=== PATIENT | female | born 1935 | race Caucasian/White ===

== ENCOUNTER 2020-04-16 11:45 | Outpatient (REF) | payer MEDICARE, OTHER, SELFPAY ==
[2020-04-16 15:02] LABS: Cholesterol 180 mg/dL; HDL Cholesterol 84 mg/dL; LDL Cholesterol Calculated 76 mg/dl; Triglycerides 101 mg/dL
== END 2020-04-16 11:46 | disposition home or self-care (01) ==
LOC: HO.HMGCLDS 11:45
PROVIDERS: PCP Internal Medicine; Visit Provider Internal Medicine
DX: R06.00 Dyspnea, unspecified (principal); R30.0 Dysuria
CPT/HCPCS: 36415; 80061; 87086; 87088; 87186

== ENCOUNTER → 2020-07-09 10:19 | Outpatient (REF) | payer MEDICARE, OTHER, SELFPAY ==
--- NOTE | 2020-07-09 10:37 | ECG_ITS ---
Test Reason : CP Blood Pressure : / mmHG Vent. Rate : 080 BPM Atrial Rate : 080 BPM P-R Int : 154 ms QRS Dur : 088 ms QT Int : 370 ms P-R-T Axes : 040 -07 033 degrees QTc Int : 426 ms Normal sinus rhythm Non-specific intra-ventricular conduction block Abnormal ECG When compared with ECG of 05-JUN-2019 23:02, No significant change was found Referred By: Jaren Arguelles Electronically Signed By:JONATHAN CASTLE
== END ==
LOC: HO.CARD 10:19
PROVIDERS: PCP Internal Medicine; Visit Provider Internal Medicine
DX: R07.9 Chest pain, unspecified (principal)
CPT/HCPCS: 93005

== ENCOUNTER → 2020-09-10 11:28 | Outpatient (BNVA) | payer MEDICARE, OTHER, SELFPAY | PROVIDERS: Visit Provider Internal Medicine | DX: J84.9 Interstitial pulmonary disease, unspecified (principal); J15.212 Pneumonia due to Methicillin resistant Staphylococcus aureus; R09.02 Hypoxemia | CPT/HCPCS: 99212 ==

== ENCOUNTER 2020-09-24 14:57 | Outpatient (REF) | payer MEDICARE, OTHER, SELFPAY ==
[2020-09-24 15:39] LABS: MANUAL DIFF FLAG NO
[2020-09-24 15:43] LABS: Basophils Percent Auto 0.2 % (0-2); Eosinophils Absolute Auto 0.1 X10*3/uL (0.0-0.4); Eosinophils Percent Auto 0.4 % (0-4); Hematocrit 31.5 % (37-47); Hemoglobin 9.5 g/dl (12.0-16.0); Imm Gran Abs Auto 0.18 X10*3/uL (0.00-0.03); Imm Gran Pct Auto 1.3 % (0.0-0.4); Lymphocytes Percent Auto 6.9 % (20-40); Mean Corpuscular HGB Conc 30.2 g/dl (31.0-35.0); Mean Corpuscular Hemoglobin 21.4 pg (27.0-33.0); Mean Corpuscular Volume 70.9 fL (80-98); Mean Platelet Volume 9.4 fL (9.4-12.3); Monocytes Absolute Auto 0.7 X10*3/uL (0.1-1.2); Monocytes Percent Auto 4.8 % (2-11); Neutrophils Absolute Auto 12.2 X10*3/uL (2.0-8.3); Neutrophils Percent Auto 86.4 % (45-73); Platelet Count 448 X10*3/uL (160-400); Red Blood Count 4.44 X10*6/uL (4.20-5.50); Red Cell Distribution Width 22.2 % (11.0-16.0); White Blood Count 14.1 X10*3/uL (4.8-10.8)
[2020-09-24 16:17] LABS: Anion Gap 14 (12-20); Blood Urea Nitrogen 20 mg/dL (9-16); Calcium 8.9 mg/dL (8.4-10.2); Carbon Dioxide 29 mmol/L (22-29); Chloride 96 mmol/L (96-108); Estimated Glomerular Filt Rate > 60; Glucose Random 173 mg/dL (60-115); Potassium 5.4 mmol/L (3.3-5.1); Sodium 134 mmol/L (135-145)
== END 2020-09-24 14:58 | disposition home or self-care (01) ==
LOC: HO.LAB 14:57
PROVIDERS: PCP Internal Medicine; Visit Provider Internal Medicine
DX: Z00.00 Encounter for general adult medical examination without abnormal findings (principal); R51.9 Headache, unspecified
CPT/HCPCS: 36415; 80048; 85025

== ENCOUNTER 2020-10-01 10:19 | Outpatient (REF) | payer MEDICARE, OTHER, SELFPAY ==
--- NOTE | ~2020-10-01 | XR_ITS ---
EXAMINATION: XR CHEST CLINICAL INFORMATION: Pneumonia. COMPARISON: CT chest 07/21/2019 TECHNIQUE: 2 views of the chest were obtained. FINDINGS: There is persistent increase interstitial markings in both lungs. No consolidation seen. The heart size and pulmonary vascularity is normal. No lytic or sclerotic process seen. XR/XR chest 2V IMPRESSION: Chronic interstitial lung changes unchanged to CT chest 07/21/2019. No acute consolidation or pleural effusion seen.
== END 2020-10-01 10:20 | disposition home or self-care (01) ==
LOC: HO.XRAY 10:19
PROVIDERS: PCP Internal Medicine; Visit Provider Internal Medicine
DX: J18.9 Pneumonia, unspecified organism (principal); R09.02 Hypoxemia; Z79.899 Other long term (current) drug therapy
CPT/HCPCS: 71046; 99212

== ENCOUNTER → 2021-01-08 10:40 | Outpatient (BNVA) | payer MEDICARE, OTHER, SELFPAY | PROVIDERS: PCP Internal Medicine; Visit Provider Internal Medicine | DX: J84.9 Interstitial pulmonary disease, unspecified (principal); R09.02 Hypoxemia | CPT/HCPCS: 99212 ==

== ENCOUNTER 2021-05-20 16:07 | Inpatient (IN) | payer MEDICARE, OTHER, SELFPAY ==
--- NOTE | ~2021-05-20 | XR_ITS ---
EXAMINATION: XR CHEST CLINICAL INFORMATION: Shortness of breath COMPARISON: 10/01/2020 TECHNIQUE: Frontal view of the chest was obtained. FINDINGS: The lungs are well expanded. Diffuse prominent markings throughout both lungs, as seen on previous imaging and likely chronic in nature. There is no new consolidation. No pleural effusion or pneumothorax. The cardiomediastinal silhouette is unchanged, with a calcified aorta. Aortic valvular hardware. Degenerative changes in the shoulders. XR/XR chest 1V IMPRESSION: Chronic changes in the lungs with no acute pulmonary finding.
[2021-05-20 17:09] VITALS: BP 139/85; PULSE 84; RESP 20; TEMP 36.1; O2SAT 95; BMI 29.0
--- NOTE | 2021-05-20 20:48 | ED_ITS ---
HPI - SOB/Dyspnea General Chief Complaint: Dyspnea Stated Complaint: diff. breathing Time Seen by Provider: 05/20/21 20:48 Source: patient History of Present Illness HPI Narrative: Patient with history of congestive heart failure status post TAVR, hypertension, COPD, interstitial lung disease on prednisone 5 mg daily never smoked, on 2 L of oxygen at rest and 4 L on exertion comes here for increased shortness of breath saturating 95% on 2 L, at home since yesterday patient dropped her pulse ox to 70s while ambulating on oxygen 4 L patient was seen by PCP on 05/06 started on Bactrim for 5 days for UTI mostly patient has dry cough no fever chills no chest pain no palpitation Related Data Home Medications Medication Instructions Recorded Confirmed amlodipine 5 mg tablet 5 mg PO DAILY 05/18/20 05/20/21 ipratropium bromide 42 mcg (0.06 INTRANASAL 05/18/20 05/06/21 %) nasal spray pentoxifylline 400 mg 400 mg PO BID 05/18/20 05/20/21 tablet,extended release gabapentin 300 mg capsule 300 mg PO BEDTIME cap 10/01/20 05/20/21 omeprazole 20 mg capsule,delayed 20 mg PO DAILY 10/01/20 05/20/21 release prednisone 5 mg tablet 5 mg PO DAILY tab 10/01/20 05/20/21 nystatin 100,000 unit/gram topical TOPICAL 01/08/21 05/06/21 powder ferrous sulfate 325 mg (65 mg 325 mg PO DAILY 02/01/21 05/20/21 iron) tablet Previous Rx's Medication Instructions Recorded albuterol sulfate 90 mcg/actuation 2 puff INHALATION Q4-6H PRN #8.5 g 10/22/20 aerosol inhaler (ProAir HFA) lorazepam 0.5 mg tablet 0.5 mg PO BID #60 tab 01/02/21 simvastatin 40 mg tablet 40 mg PO BEDTIME #90 tab 04/16/21 furosemide 40 mg tablet (Lasix) 40 mg PO DAILY #90 tab 05/13/21 Allergies Allergy/AdvReac Type Severity Reaction Status Date / Time oxycodone [From PERCODAN] Allergy Unknown VOMITING Verified 05/20/21 17:16 Percodan Allergy Unknown vomiting Verified 05/20/21 17:16 Review of Systems Review of Systems: Yes all other systems are reviewed and are negative [facility] Past Medical History Medical History (Updated 05/20/21 @ 23:35 by Samir Kramer MD) CHF (congestive heart failure) Diarrhea Hyperlipidemia Hypertension Hypoxemia Immunization due Interstitial lung disease MRSA pneumonia Obesity Surgical History (Updated 05/20/21 @ 23:30 by Ta Goode MD) History of hysterectomy History of transcatheter aortic valve replacement (TAVR) Family History Family History Father No problems noted. Mother No problems noted. Other Substance use disorder Social History Social History Housing: Assisted Living Facility Alcohol intake: never Patient Tobacco Use Status: Never used Tobacco e-Cigarette/Vaping Use: Never Used Second Hand Smoke Exposure: No Advance Directives: No service: No Current occupational status: retired Cognitive needs: No Hearing needs: No Vision needs: No Physical Exam Vital Signs: Vital Signs: Last Vital Signs Temp 97 F 05/20/21 17:09 Pulse 101 H 05/20/21 23:44 Resp 16 05/20/21 23:44 BP 105/63 05/20/21 23:44 Pulse Ox 90 L 05/20/21 23:44 Oxygen Flow Rate 2 05/20/21 17:09 Body Mass Index 29.0 Appearance: Alert. Oriented X3. No acute distress. Eyes: No pallor/ icterus ENT: Pharynx normal. Oral Mucosa moist Neck: Normal inspection. Neck supple. CVS: Normal heart rate and rhythm. Pulses normal. Respiratory: Mild respiratory distress find crackles at the bases prolonged expiration with rhonchi Abdomen: Soft and nontender. Bowel sounds are present, no mass palpable, no CVA tenderness Skin: Skin warm and dry. Normal skin color. Normal skin turgor. Extremities: Trace lower extremity edema. No calf tenderness Neuro: Oriented X 3. MDM - SOB/Dyspnea MDM Narrative Medical decision making narrative: Patient with chronic lung disease with worsening of shortness of breath with hypoxia at home on exertion with elevated BNP likely component of CHF making her shortness of breath worse will start IV diuretics admit for further evaluation Medical Records Attestation: I reviewed the patient's medical records. Lab Data Attestation: I reviewed the patient's lab results. Result diagrams: 05/20/21 21:25 05/20/21 21:25 Labs: Lab Results 05/20/21 05/20/21 05/20/21 Range/Units 21:25 21:25 21:25 WBC 7.3 (4.8-10.8) X10*3/uL RBC 4.18 L (4.20-5.50) X10*6/uL Hgb 11.4 L (12.0-16.0) g/dl Hct 35.2 L (37.0-47.0) % MCV 84.2 (80.0-98.0) fL MCH 27.3 (27.0-33.0) pg MCHC 32.4 (31.0-35.0) g/dl RDW 15.2 (11.0-16.0) % Plt Count 298 (160-400) X10*3/uL MPV 8.9 L (9.4-12.3) fL Immature Gran % (Auto) 0.5 H (0.0-0.4) % Neut % (Auto) 68.8 (45-73) % Lymph % (Auto) 18.1 L (20-40) % [place] % (Auto) 9.6 (2-11) % Eos % (Auto) 2.3 (0-4) % Baso % (Auto) 0.7 (0-2) % Lymph # (Auto) 1.3 (1.2-4.9) X10*3/uL [place] # (Auto) 0.7 (0.1-1.2) X10*3/uL Eos # (Auto) 0.2 (0.0-0.4) X10*3/uL Baso # (Auto) 0.1 (0.0-0.2) X10*3/uL Abs Immat Gran (auto) 0.04 H (0.00-0.03) X10*3/uL Absolute Neuts (auto) 5.0 (2.0-8.3) x10*3/uL Absolute Nucleated RBC 0.000 (0.0-0.012) X10*3/uL Nucleated RBC % (auto) 0.0 (0.0-0.2) /100WBC Sodium 136 (135-145) mmol/L Potassium 4.2 D (3.3-5.1) mmol/L Chloride 100 (96-108) mmol/L Carbon Dioxide 24 (22-29) mmol/L Anion Gap 16 (12-20) BUN 23 H (9-16) mg/dL Creatinine 1.03 (0.5-1.4) mg/dL Estim Creat Clear Calc 37.8 Estimated GFR 51 Fasting Glucose 138 H (60-99) mg/dL Calcium 8.8 (8.4-10.2) mg/dL Total Bilirubin 0.5 (0.0-1.0) mg/dL AST 42 H (5-31) U/L ALT 44 H (0-31) U/L Alkaline Phosphatase 87 (39-117) U/L B-Natriuretic Peptide (<100) pg/mL Total Protein 7.6 (6.5-8.0) g/dL Albumin 4.1 (3.5-5.0) g/dL COVID-19 (JOSE) Negative (Negative) COVID-19 Clin Com See Note 05/20/21 Range/Units 21:25 WBC (4.8-10.8) X10*3/uL RBC (4.20-5.50) X10*6/uL Hgb (12.0-16.0) g/dl Hct (37.0-47.0) % MCV (80.0-98.0) fL MCH (27.0-33.0) pg MCHC (31.0-35.0) g/dl RDW (11.0-16.0) % Plt Count (160-400) X10*3/uL MPV (9.4-12.3) fL Immature Gran % (Auto) (0.0-0.4) % Neut % (Auto) (45-73) % Lymph % (Auto) (20-40) % [place] % (Auto) (2-11) % Eos % (Auto) (0-4) % Baso % (Auto) (0-2) % Lymph # (Auto) (1.2-4.9) X10*3/uL [place] # (Auto) (0.1-1.2) X10*3/uL Eos # (Auto) (0.0-0.4) X10*3/uL Baso # (Auto) (0.0-0.2) X10*3/uL Abs Immat Gran (auto) (0.00-0.03) X10*3/uL Absolute Neuts (auto) (2.0-8.3) x10*3/uL Absolute Nucleated RBC (0.0-0.012) X10*3/uL Nucleated RBC % (auto) (0.0-0.2) /100WBC Sodium (135-145) mmol/L Potassium (3.3-5.1) mmol/L Chloride (96-108) mmol/L Carbon Dioxide (22-29) mmol/L Anion Gap (12-20) BUN (9-16) mg/dL Creatinine (0.5-1.4) mg/dL Estim Creat Clear Calc Estimated GFR Fasting Glucose (60-99) mg/dL Calcium (8.4-10.2) mg/dL Total Bilirubin (0.0-1.0) mg/dL AST (5-31) U/L ALT (0-31) U/L Alkaline Phosphatase (39-117) U/L B-Natriuretic Peptide 1032 H (<100) pg/mL Total Protein (6.5-8.0) g/dL Albumin (3.5-5.0) g/dL COVID-19 (JOSE) (Negative) COVID-19 Clin Com ECG Data Attestation: I personally reviewed and interpreted this ECG as follows: Interpretation: Normal sinus rhythm heart rate 81 beats per minute LVH no acute ST T wave changes no acute ischemia Discharge Plan Discharge Clinical Impression: Hypoxemia, Interstitial lung disease CHF (congestive heart failure) Qualifiers: Heart failure type: combined systolic and diastolic Heart failure chronicity: acute on chronic Qualified Code(s): I50.43 - Acute on chronic combined systolic (congestive) and diastolic (congestive) heart failure Patient Disposition: Admitted As Inpatient
[2021-05-20] MEDS: Albuterol/Iprat 2.5/0.5MG 3 ML AMPUL.NEB INHALE (21:09)
[2021-05-20 21:10] VITALS: PULSE 86; O2SAT 92
[2021-05-20 21:33] LABS: MANUAL DIFF FLAG NO
[2021-05-20 21:36] LABS: Basophils Absolute Auto 0.1 X10*3/uL (0.0-0.2); Basophils Percent Auto 0.7 % (0-2); Eosinophils Absolute Auto 0.2 X10*3/uL (0.0-0.4); Eosinophils Percent Auto 2.3 % (0-4); Hematocrit 35.2 % (37.0-47.0); Hemoglobin 11.4 g/dl (12.0-16.0); Imm Gran Abs Auto 0.04 X10*3/uL (0.00-0.03); Imm Gran Pct Auto 0.5 % (0.0-0.4); Lymphocytes Absolute Auto 1.3 X10*3/uL (1.2-4.9); Lymphocytes Percent Auto 18.1 % (20-40); Mean Corpuscular HGB Conc 32.4 g/dl (31.0-35.0); Mean Corpuscular Hemoglobin 27.3 pg (27.0-33.0); Mean Corpuscular Volume 84.2 fL (80.0-98.0); Mean Platelet Volume 8.9 fL (9.4-12.3); Monocytes Absolute Auto 0.7 X10*3/uL (0.1-1.2); Monocytes Percent Auto 9.6 % (2-11); Neutrophils Percent Auto 68.8 % (45-73); Platelet Count 298 X10*3/uL (160-400); Red Blood Count 4.18 X10*6/uL (4.20-5.50); Red Cell Distribution Width 15.2 % (11.0-16.0); White Blood Count 7.3 X10*3/uL (4.8-10.8)
[2021-05-20 21:50] LABS: Alanine Aminotransferase 44 U/L (0-31); Albumin Level 4.1 g/dL (3.5-5.0); Alkaline Phosphatase 87 U/L (39-117); Anion Gap 16 (12-20); Aspartate Amino Transferase 42 U/L (5-31); Bilirubin Total 0.5 mg/dL (0.0-1.0); Blood Urea Nitrogen 23 mg/dL (9-16); Calcium 8.8 mg/dL (8.4-10.2); Carbon Dioxide 24 mmol/L (22-29); Chloride 100 mmol/L (96-108); Creatinine Clr Calc Pharmacy 37.8; Estimated Glomerular Filt Rate 51; Glucose Fasting 138 mg/dL (60-99); Potassium 4.2 mmol/L (3.3-5.1); Sodium 136 mmol/L (135-145); Total Protein 7.6 g/dL (6.5-8.0)
[2021-05-20 21:52] LABS: COVID-19 Test Negative (Negative); IDNOW Serial# 9DD0AD1C
[2021-05-20 21:55] LABS: B Type Natriuretic Peptide 1032 pg/mL (<100)
[2021-05-20] MEDS: methylPREDNISolone Sod Succ 125 MG/2 ML VIAL IVPUSH (22:50)
--- NOTE | 2021-05-20 23:29 | PM.IMHP ---
History of Present Illness Date of Service: 05/20/21 Chief Complaint: SOB 85-year-old female with a past medical history of hypertension, hyperlipidemia, COPD, interstitial lung disease, chronic respiratory failure on 2-4 L of home oxygen, CHF, history of MRSA pneumonia, history of TAVR presented to the hospital with a chief complaint of shortness of breath. Reported that over the past few days she has been having shortness of breath and increased dyspnea on exertion; she uses 2 L of oxygen at rest and 4 L at ambulation; today noted toe hypoxic to 70% even on 4 L of home oxygen; denies any chest pain palpitations. Denies any fever chills. Denies any cough or sputum production; Denies any GI or symptoms. Review of all other systems is negative except mentioned above ER course: Patient noted to be hypoxic; on supplemental oxygen; not in respiratory distress; chest x-ray showed no evidence of pneumonia; concern for COPD exacerbation-given Solu-Medrol; also noted to elevated proBNP-given Lasix. Admitted for further management. [facility] Medical History (Updated 05/20/21 @ 23:35 by Samir Kramer MD) CHF (congestive heart failure) Diarrhea Hyperlipidemia Hypertension Hypoxemia Immunization due Interstitial lung disease MRSA pneumonia Obesity Family History Father No problems noted. Mother No problems noted. Other Substance use disorder Pertinent family history: as above Surgical History (Updated 05/20/21 @ 23:30 by Ta Goode MD) History of hysterectomy History of transcatheter aortic valve replacement (TAVR) Social History Housing: Assisted Living Facility Alcohol intake: never Patient Tobacco Use Status: Never used Tobacco e-Cigarette/Vaping Use: Never Used Second Hand Smoke Exposure: No Use of substances other than those prescribed or required for medical reasons: No Advance Directives: No service: No Current occupational status: retired Cognitive needs: No Hearing needs: No Vision needs: No Meds Allergies Allergy/AdvReac Type Severity Reaction Status Date / Time oxycodone [From PERCODAN] Allergy Unknown VOMITING Verified 05/20/21 17:16 Percodan Allergy Unknown vomiting Verified 05/20/21 17:16 Active Medications: Current Medications Acetaminophen (Acetaminophen 325 Mg Tablet) 650 mg PO Q6H PRN PRN Reason: Pain, Mild (Pain Scale 1-3) Albuterol/Ipratropium (Albuterol/Iprat 2.5/0.5mg 3 Ml Ampul.Neb) 3 ml INHALE RQ4H WHILE AWAKE BARBARA Azithromycin (Azithromycin 500 Mg Tablet) 500 mg PO Q24H BARBARA Furosemide (Furosemide 20 Mg/2 Ml Vial) 20 mg IVPUSH DAILY BARBARA; Protocol Heparin Sodium (Porcine) (Heparin Sodium,Porcine 5,000 Unit/Ml Vial) 5,000 unit SUBCUT Q8H BARBARA Melatonin (Melatonin 3 Mg Tablet) 6 mg PO BEDTIME PRN PRN Reason: Insomnia Methylprednisolone Sodium Succinate (Methylprednisolone Sod Succ 40 Mg/Ml Vial) 40 mg IVPUSH Q6H BARBARA Senna (Sennosides 8.6 Mg Tablet) 17.2 mg PO BEDTIME PRN PRN Reason: Constipation Sodium Chloride (0.9 % Sodium Chloride Flush 3 Ml Syringe) 3 ml IVFLUSH QSHIFT [facility] Home Medications Medication Instructions Recorded Confirmed Last Taken Type amlodipine 5 mg tablet 5 mg PO DAILY 05/18/20 05/20/21 Unknown History ipratropium bromide 42 mcg (0.06 INTRANASAL 05/18/20 05/06/21 Unknown History %) nasal spray pentoxifylline 400 mg 400 mg PO BID 05/18/20 05/20/21 Unknown History tablet,extended release gabapentin 300 mg capsule 300 mg PO BEDTIME cap 10/01/20 05/20/21 Unknown History omeprazole 20 mg capsule,delayed 20 mg PO DAILY 10/01/20 05/20/21 Unknown History release prednisone 5 mg tablet 5 mg PO DAILY tab 10/01/20 05/20/21 Unknown History nystatin 100,000 unit/gram topical TOPICAL 01/08/21 05/06/21 Unknown History powder ferrous sulfate 325 mg (65 mg 325 mg PO DAILY 02/01/21 05/20/21 Unknown History iron) tablet Physical Exam Vital Signs and Narrative: Vital Signs: Last Vital Signs Temp 97 F 05/20/21 17:09 Pulse 86 05/20/21 21:10 Resp 20 05/20/21 17:09 BP 139/85 05/20/21 17:09 Pulse Ox 95 05/20/21 17:09 Oxygen Flow Rate 2 05/20/21 17:09 Body Mass Index 29.0 Gen: Appears be in no acute distress HEENT: NCAT, Moist mucosa. Pulmonary: coarse breath sounds, CVS: Normal S1-S2 Abdomen: BS+, Soft, Nontender Extremities: Warm well perfused Neuro: Alert and awake. Results Labs CBC and Chem 7: 05/20/21 21:25 05/20/21 21:25 Labs: Laboratory Results - last 24 hr 05/20/21 05/20/21 05/20/21 21:25 21:25 21:25 MCV 84.2 MCH 27.3 MCHC 32.4 RDW 15.2 Plt Count 298 MPV 8.9 L Immature Gran % (Auto) 0.5 H Neut % (Auto) 68.8 Lymph % (Auto) 18.1 L [place] % (Auto) 9.6 Eos % (Auto) 2.3 Baso % (Auto) 0.7 Lymph # (Auto) 1.3 [place] # (Auto) 0.7 Eos # (Auto) 0.2 Baso # (Auto) 0.1 Abs Immat Gran (auto) 0.04 H Absolute Neuts (auto) 5.0 Absolute Nucleated RBC 0.000 Nucleated RBC % (auto) 0.0 Anion Gap 16 Estim Creat Clear Calc 37.8 Estimated GFR 51 Fasting Glucose 138 H Calcium 8.8 Total Bilirubin 0.5 AST 42 H ALT 44 H Alkaline Phosphatase 87 B-Natriuretic Peptide Total Protein 7.6 Albumin 4.1 COVID-19 (JOSE) Negative COVID-19 Clin Com See Note 05/20/21 21:25 MCV MCH MCHC RDW Plt Count MPV Immature Gran % (Auto) Neut % (Auto) Lymph % (Auto) [place] % (Auto) Eos % (Auto) Baso % (Auto) Lymph # (Auto) [place] # (Auto) Eos # (Auto) Baso # (Auto) Abs Immat Gran (auto) Absolute Neuts (auto) Absolute Nucleated RBC Nucleated RBC % (auto) Anion Gap Estim Creat Clear Calc Estimated GFR Fasting Glucose Calcium Total Bilirubin AST ALT Alkaline Phosphatase B-Natriuretic Peptide 1032 H Total Protein Albumin COVID-19 (JOSE) COVID-19 Clin Com Imaging Radiologist's Impressions: Impressions Chest X-Ray 05/20/21 22:56 IMPRESSION: Chronic changes in the lungs with no acute pulmonary finding. Assessment and Plan (1) CHF (congestive heart failure): Status: Acute (2) Interstitial lung disease: Status: Acute (3) Hypoxemia: Status: Acute 85-year-old female with a past medical history of hypertension, hyperlipidemia, COPD, interstitial lung disease, chronic respiratory failure on 2-4 L of home oxygen, CHF, history of MRSA pneumonia, history of TAVR presented to the hospital with a chief complaint of shortness of breath. Acute hypoxic respiratory failure: In the setting of COPD/CHF. On supplemental oxygen. Will continue to monitor. Acute I&D/COPD exacerbation: Continue Solu-Medrol 40 mg IV b.i.d.. Hold home prednisone 2.5 mg. Nebulizations standing and p.r.n.. Pulmonology consult Acute CHF exacerbation: Continue Lasix 20 mg IV daily. Daily weights and I's and O's. Cardiology consult. Telemetry. Cycle cardiac enzymes. Hypertension/hyperlipidemia: Continue home medications DVT prophylaxis: Subcu heparin Code status: Full code Quality Stroke Does the patient have a stroke diagnosis?: No VTE Prior VTE?: No VTE Risk Level:: Medical - moderate - high VTE Device Contraindication: Treatment Not Indicated VTE Drug Contraindication: N/A - Med Ordered
--- NOTE | 2021-05-20 23:34 | ECG_ITS ---
Test Reason : DYSPNEA Blood Pressure : / mmHG Vent. Rate : 081 BPM Atrial Rate : 081 BPM P-R Int : 168 ms QRS Dur : 098 ms QT Int : 392 ms P-R-T Axes : 040 -17 054 degrees QTc Int : 455 ms Normal sinus rhythm Possible Left atrial enlargement Intra-ventricular conduction delay Left axis deviation Poor R wave progression Abnormal ECG When compared with ECG of 09-JUL-2020 10:46, Nonspecific T wave abnormality now evident in Lateral leads Referred By: Samir Kramer Electronically Signed By:ABIGAIL JACKSON MD
[2021-05-20 23:44] VITALS: BP 105/63; PULSE 101; RESP 16; O2SAT 90
[2021-05-21] VITALS (10 sets, daily range): BP systolic 102–141; BP diastolic 54–93; PULSE 84–101; RESP 16–24; TEMP 36.7; O2SAT 90–96
[2021-05-21] MEDS: Heparin Sodium,Porcine 5,000 UNIT/ML VIAL 5000 UNIT SUBCUT ×4 (00:09→23:17)
[2021-05-21] MEDS: Furosemide 20 MG/2 ML VIAL IVPUSH ×2 (00:11→09:10)
[2021-05-21] MEDS: Azithromycin 500 MG TABLET PO ×2 (00:12→19:47)
--- NOTE | 2021-05-21 01:29 | PC.NURSE ---
Put pt on a purewick due to pt being give lasix and having difficulty catching breath after getting up to use the bathroom. Pt was agreeable to being put on purewick having used it before at a snf.
[2021-05-21 06:44] LABS: Basophils Percent Auto 0.2 % (0-2); Hematocrit 35.7 % (37.0-47.0); Hemoglobin 11.4 g/dl (12.0-16.0); Imm Gran Abs Auto 0.02 X10*3/uL (0.00-0.03); Imm Gran Pct Auto 0.4 % (0.0-0.4); Lymphocytes Absolute Auto 0.4 X10*3/uL (1.2-4.9); Lymphocytes Percent Auto 7.2 % (20-40); MANUAL DIFF FLAG SCAN; Mean Corpuscular HGB Conc 31.9 g/dl (31.0-35.0); Mean Corpuscular Hemoglobin 26.6 pg (27.0-33.0); Mean Corpuscular Volume 83.2 fL (80.0-98.0); Mean Platelet Volume 9.2 fL (9.4-12.3); Monocytes Absolute Auto 0.1 X10*3/uL (0.1-1.2); Monocytes Percent Auto 1.1 % (2-11); Neutrophils Absolute Auto 4.9 x10*3/uL (2.0-8.3); Neutrophils Percent Auto 91.1 % (45-73); Platelet Count 312 X10*3/uL (160-400); Red Blood Count 4.29 X10*6/uL (4.20-5.50); Red Cell Distribution Width 15.1 % (11.0-16.0); SCAN SMEAR FLAG 1; White Blood Count 5.4 X10*3/uL (4.8-10.8)
[2021-05-21 07:17] LABS: SLIDE REVIEW VERIFIED
[2021-05-21 07:19] LABS: Anion Gap 13 (12-20); Blood Urea Nitrogen 20 mg/dL (9-16); Calcium 8.7 mg/dL (8.4-10.2); Carbon Dioxide 29 mmol/L (22-29); Chloride 99 mmol/L (96-108); Creatinine Clr Calc Pharmacy 42.3; Estimated Glomerular Filt Rate 58; Glucose Random 170 mg/dL (60-115); Potassium 3.9 mmol/L (3.3-5.1); Sodium 137 mmol/L (135-145)
[2021-05-21] MEDS: Omeprazole 20 MG CAPSULE.DR PO (07:51)
[2021-05-21] MEDS: methylPREDNISolone Sod Succ 40 MG/ML VIAL IVPUSH ×3 (07:51→19:47)
[2021-05-21] MEDS: Albuterol/Iprat 2.5/0.5MG 3 ML AMPUL.NEB INHALE ×4 (08:28→20:10)
--- NOTE | 2021-05-21 08:53 | P.CONPL_ITS ---
History of Present Illness History of Present Illness Consult date: 05/21/21 Chief complaint: Hypoxia Narrative: This is an inpatient Pulmonary consultation. 85-year-old female with a past medical history of hypertension, hyperlipidemia, COPD, interstitial lung disease, chronic respiratory failure on 2-4 L of home oxygen, CHF, history of MRSA pneumonia, history of TAVR presented to the hospital with a chief complaint of shortness of breath. Reported that over the past few days she has been having shortness of breath and increased dyspnea on exertion; she uses 2 L of oxygen at rest and 4 L at ambulation; today noted toe hypoxic to 70% even on 4 L of home oxygen; denies any chest pain palpitations. Patient did have a . There is a stat CT scan of the chest was chest x-ray chest x-ray personally by me demonstrating increased cardiac size in addition to significant reticulonodular opacities consistent with significant interstitial lung disease. Review of Systems Constitutional: Constitutional: Denies night sweats ENT: Denies change in voice, Denies lip swelling, Denies mouth pain, Reports nasal congestion, Reports nasal discharge and Denies tongue swelling Cardiovascular: Cardiovascular: Reports chest pain and Reports dyspnea Respiratory: Respiratory: Reports cough and Reports dyspnea Gastrointestinal: Gastrointestinal: Denies abdominal pain Musculoskeletal: Musculoskeletal: Denies no additional musculoskeletal complai nts Neurologic: Denies Neuro-related abnormal movements Allergic/Immunologic: Allergic/Immunologic: Denies lip swelling and Denies tongue swelling PMFSH Past Medical History Medical History (Updated 05/21/21 @ 08:56 by Florentino Rose MD) Acute and chronic respiratory failure with hypoxia CHF (congestive heart failure) Diarrhea Hyperlipidemia Hypertension Hypoxemia Immunization due Interstitial lung disease MRSA pneumonia Obesity Family History Family History Father No problems noted. Mother No problems noted. Other Substance use disorder Surgical History Surgical History (Updated 05/20/21 @ 23:30 by Ta Goode MD) History of hysterectomy History of transcatheter aortic valve replacement (TAVR) Social History Social History Housing: Assisted Living Facility Alcohol intake: never Patient Tobacco Use Status: Never used Tobacco e-Cigarette/Vaping Use: Never Used Second Hand Smoke Exposure: No Use of substances other than those prescribed or required for medical reasons: No Advance Directives: No service: No Current occupational status: retired Cognitive needs: No Hearing needs: No Vision needs: No Meds Allergies Allergy/AdvReac Type Severity Reaction Status Date / Time oxycodone [From PERCODAN] Allergy Unknown VOMITING Verified 05/20/21 17:16 Percodan Allergy Unknown vomiting Verified 05/20/21 17:16 Active Medications: Current Medications Acetaminophen (Acetaminophen 325 Mg Tablet) 650 mg PO Q6H PRN PRN Reason: Pain, Mild (Pain Scale 1-3) Albuterol Sulfate (Albuterol Sulfate 90 Mcg 8 Gm Inhaler) 2 puff INHALE Q4H PRN PRN Reason: shortness of breath or wheezing Albuterol/Ipratropium (Albuterol/Iprat 2.5/0.5mg 3 Ml Ampul.Neb) 3 ml INHALE RQ4H WHILE AWAKE [facility] Last Admin: 05/21/21 08:28 Dose: 3 ml Documented by: Amlodipine Besylate (Amlodipine Besylate 5 Mg Tablet) 5 mg PO DAILY [facility]; Protocol Atorvastatin Calcium (Atorvastatin Calcium 20 Mg Tablet) 20 mg PO BEDTIME [facility] Azithromycin (Azithromycin 500 Mg Tablet) 500 mg PO Q24H [facility] Furosemide (Furosemide 20 Mg/2 Ml Vial) 20 mg IVPUSH DAILY [facility]; Protocol Gabapentin (Gabapentin 300 Mg Capsule) 300 mg PO BEDTIME [facility] Heparin Sodium (Porcine) (Heparin Sodium,Porcine 5,000 Unit/Ml Vial) 5,000 unit SUBCUT Q8H [facility] Last Admin: 05/21/21 07:51 Dose: 5,000 unit Documented by: Lorazepam (Lorazepam 0.5 Mg Tablet) 0.5 mg PO BID [facility] Melatonin (Melatonin 3 Mg Tablet) 6 mg PO BEDTIME PRN PRN Reason: Insomnia Methylprednisolone Sodium Succinate (Methylprednisolone Sod Succ 40 Mg/Ml Vial) 40 mg IVPUSH Q6H [facility] Last Admin: 05/21/21 07:51 Dose: 40 mg Documented by: Omeprazole (Omeprazole 20 Mg Capsule.) 20 mg PO DAILY@0630 [facility] Last Admin: 05/21/21 07:51 Dose: 20 mg Documented by: Pentoxifylline (Pentoxifylline Er 400 Mg Tablet.Er) 400 mg PO BID [facility] Senna (Sennosides 8.6 Mg Tablet) 17.2 mg PO BEDTIME PRN PRN Reason: Constipation Sodium Chloride (0.9 % Sodium Chloride Flush 3 Ml Syringe) 3 ml IVFLUSH QSHIFT [facility] Last Admin: 05/21/21 08:20 Dose: Not Given Documented by: Home Medications Medication Instructions Recorded Confirmed Last Taken Type amlodipine 5 mg tablet 5 mg PO DAILY 05/18/20 05/20/21 Unknown History ipratropium bromide 42 mcg (0.06 INTRANASAL 05/18/20 05/06/21 Unknown History %) nasal spray pentoxifylline 400 mg 400 mg PO BID 05/18/20 05/20/21 Unknown History tablet,extended release gabapentin 300 mg capsule 300 mg PO BEDTIME cap 10/01/20 05/20/21 Unknown History omeprazole 20 mg capsule,delayed 20 mg PO DAILY 10/01/20 05/20/21 Unknown History release prednisone 5 mg tablet 5 mg PO DAILY tab 10/01/20 05/20/21 Unknown History nystatin 100,000 unit/gram topical TOPICAL 01/08/21 05/06/21 Unknown History powder ferrous sulfate 325 mg (65 mg 325 mg PO DAILY 02/01/21 05/20/21 Unknown History iron) tablet Physical Exam Vital Signs: Vital Signs: Last Vital Signs Temp 97 F 05/20/21 17:09 Pulse 88 05/21/21 08:29 Resp 19 05/21/21 07:47 BP 140/93 H 05/21/21 07:47 Pulse Ox 93 05/21/21 07:47 Oxygen Flow Rate 2 05/20/21 17:09 Body Mass Index 29.0 Const: General: alert Neck: Neck: Yes normal visual inspection, Yes full ROM and Yes no lymphadenopathy Chest: Chest palpation & inspection: normal inspection of the chest Resp: Auscultation: rales bilateral and diffuse and diminished lung sounds Cardio: Rate: regular rate Rhythm: regular rhythm Heart sounds: S1 normal heart sound present and S2 normal heart sound present GI: Palpation (GI): Soft to palpation and nontender Auscultation: normal bowel sounds Skin: General skin exam: rashes and/or lesions noted Results Laboratory Findings CBC and BMP: 05/21/21 06:30 05/21/21 06:30 Abnormal lab findings: Abnormal Labs 05/20/21 05/20/21 05/20/21 21:25 21:25 21:25 RBC 4.18 L Hgb 11.4 L Hct 35.2 L MCH MPV 8.9 L Immature Gran % (Auto) 0.5 H Neut % (Auto) Lymph % (Auto) 18.1 L [place] % (Auto) Lymph # (Auto) Abs Immat Gran (auto) 0.04 H BUN 23 H Random Glucose Fasting Glucose 138 H AST 42 H ALT 44 H B-Natriuretic Peptide 1032 H 05/21/21 05/21/21 06:30 06:30 RBC Hgb 11.4 L Hct 35.7 L MCH 26.6 L MPV 9.2 L Immature Gran % (Auto) Neut % (Auto) 91.1 H Lymph % (Auto) 7.2 L [place] % (Auto) 1.1 L Lymph # (Auto) 0.4 L Abs Immat Gran (auto) BUN 20 H Random Glucose 170 H Fasting Glucose AST ALT B-Natriuretic Peptide Assessment and Plan (1) Acute and chronic respiratory failure with hypoxia: Status: Acute (2) Interstitial lung disease: Status: Acute (3) CHF (congestive heart failure): Qualifiers: Heart failure chronicity: acute on chronic Heart failure type: combined systolic and diastolic Qualified Code(s): I50.43 - Acute on chronic combined systolic (congestive) and diastolic (congestive) heart failure Status: Acute The patient likely has worsening respiratory status due to a component of congestive heart failure superimposed on her advanced interstitial lung disease. Exacerbation of her interstitial lung disease is also possible with no evidence of any significant ground-glass opacities at this time. Her brain tumor peptide is also elevated she has a significant cardiac history. Continue Solu-Medrol 40 mg IV q.6 times 1-2 days then deescalate to prednisone 40 mg daily Continue diuresis as tolerated Titrate oxygen to maintain a pulse ox above 90% Complete a course antibiotics x7 days Consider echocardiogram and cardiac evaluation. Will continue to follow. Procedures Date of Service Date of Service: 05/21/21
[2021-05-21] MEDS: amLODIPine Besylate 5 MG TABLET PO (09:09)
[2021-05-21] MEDS: Pentoxifylline ER 400 MG TABLET.ER PO ×2 (09:09→21:32)
[2021-05-21] MEDS: LORazepam 0.5 MG TABLET PO ×2 (09:10→21:00)
[2021-05-21] MEDS: Acetaminophen 325 MG TABLET 650 MG PO ×2 (09:10→15:56)
--- NOTE | 2021-05-21 10:23 | PM.CNCAR ---
History of Present Illness History of Present Illness Date of Service: 05/21/21 Chief complaint: Hypoxia Narrative: This is a cardiology consultation regarding possibly congestive heart failure. Patient goes to [facility]. She has a history of transcatheter aortic valve replacement from 2017. At that time, cardiac catheterization with only nonobstructive disease and nothing significant hemodynamically. Otherwise, she has a history of COPD and interstitial lung disease but she denies any smoking history. She states she has chronic shortness of breath on ambulation but in the last few days, she has been short of breath even on just a few steps and this is significantly more than her usual. She also has some chest pain on the left side but is clearly reproducible and present in only certain circumstances like taking a deep breath, finger pressure extra. Does not sound anginal at all. No significant leg swelling. Is Review of Systems Review of Systems: Yes all other systems are reviewed and are negative Cardiovascular: Cardiovascular: Reports as per HPI, Reports no additional cardiovascular complaints, Denies acrocyanosis, Denies cool extremities, Denies painful fingertips, Reports chest pain, Denies chest pain at rest, Denies diaphoresis, Denies syncope, Denies irregular heart rhythm, Denies claudication, Denies leg edema, Denies lightheadedness, Denies palpitations and Reports dyspnea Respiratory: Respiratory: Reports dyspnea Neurologic: Denies syncope Endocrine: Endocrine: Denies palpitations [facility] Past Medical History Medical History (Updated 05/21/21 @ 10:30 by Oli Tejada MD) Acute and chronic respiratory failure with hypoxia CHF (congestive heart failure) Diarrhea Hyperlipidemia Hypertension Hypoxemia Immunization due Interstitial lung disease MRSA pneumonia Obesity Family History Family History Father No problems noted. Mother No problems noted. Other Substance use disorder Surgical History Surgical History (Updated 05/21/21 @ 10:35 by Oli Tejada MD) History of hysterectomy History of transcatheter aortic valve replacement (TAVR) Social History Social History Housing: Assisted Living Facility Alcohol intake: never Patient Tobacco Use Status: Never used Tobacco e-Cigarette/Vaping Use: Never Used Second Hand Smoke Exposure: No Use of substances other than those prescribed or required for medical reasons: No Advance Directives: No service: No Current occupational status: retired Cognitive needs: No Hearing needs: No Vision needs: No Meds Allergies Allergy/AdvReac Type Severity Reaction Status Date / Time oxycodone [From PERCODAN] Allergy Unknown VOMITING Verified 05/20/21 17:16 Percodan Allergy Unknown vomiting Verified 05/20/21 17:16 Active Medications: Current Medications Acetaminophen (Acetaminophen 325 Mg Tablet) 650 mg PO Q6H PRN PRN Reason: Pain, Mild (Pain Scale 1-3) Last Admin: 05/21/21 09:10 Dose: 650 mg Documented by: Albuterol Sulfate (Albuterol Sulfate 90 Mcg 8 Gm Inhaler) 2 puff INHALE Q4H PRN PRN Reason: shortness of breath or wheezing Albuterol/Ipratropium (Albuterol/Iprat 2.5/0.5mg 3 Ml Ampul.Neb) 3 ml INHALE RQ4H WHILE AWAKE [facility] Last Admin: 05/21/21 08:28 Dose: 3 ml Documented by: Amlodipine Besylate (Amlodipine Besylate 5 Mg Tablet) 5 mg PO DAILY [facility]; Protocol Last Admin: 05/21/21 09:09 Dose: 5 mg Documented by: Atorvastatin Calcium (Atorvastatin Calcium 20 Mg Tablet) 20 mg PO BEDTIME [facility] Azithromycin (Azithromycin 500 Mg Tablet) 500 mg PO Q24H [facility] Furosemide (Furosemide 20 Mg/2 Ml Vial) 20 mg IVPUSH DAILY [facility]; Protocol Last Admin: 05/21/21 09:10 Dose: 20 mg Documented by: Gabapentin (Gabapentin 300 Mg Capsule) 300 mg PO BEDTIME [facility] Heparin Sodium (Porcine) (Heparin Sodium,Porcine 5,000 Unit/Ml Vial) 5,000 unit SUBCUT Q8H [facility] Last Admin: 05/21/21 07:51 Dose: 5,000 unit Documented by: Lorazepam (Lorazepam 0.5 Mg Tablet) 0.5 mg PO BID [facility] Last Admin: 05/21/21 09:10 Dose: 0.5 mg Documented by: Melatonin (Melatonin 3 Mg Tablet) 6 mg PO BEDTIME PRN PRN Reason: Insomnia Methylprednisolone Sodium Succinate (Methylprednisolone Sod Succ 40 Mg/Ml Vial) 40 mg IVPUSH Q6H [facility] Last Admin: 05/21/21 07:51 Dose: 40 mg Documented by: Omeprazole (Omeprazole 20 Mg Capsule.) 20 mg PO DAILY@0630 [facility] Last Admin: 05/21/21 07:51 Dose: 20 mg Documented by: Pentoxifylline (Pentoxifylline Er 400 Mg Tablet.Er) 400 mg PO BID [facility] Last Admin: 05/21/21 09:09 Dose: 400 mg Documented by: Senna (Sennosides 8.6 Mg Tablet) 17.2 mg PO BEDTIME PRN PRN Reason: Constipation Sodium Chloride (0.9 % Sodium Chloride Flush 3 Ml Syringe) 3 ml IVFLUSH QSHIFT [facility] Last Admin: 05/21/21 08:20 Dose: Not Given Documented by: Home Medications Medication Instructions Recorded Confirmed Last Taken Type amlodipine 5 mg tablet 5 mg PO DAILY 05/18/20 05/20/21 Unknown History ipratropium bromide 42 mcg (0.06 INTRANASAL 05/18/20 05/06/21 Unknown History %) nasal spray pentoxifylline 400 mg 400 mg PO BID 05/18/20 05/20/21 Unknown History tablet,extended release gabapentin 300 mg capsule 300 mg PO BEDTIME cap 10/01/20 05/20/21 Unknown History omeprazole 20 mg capsule,delayed 20 mg PO DAILY 10/01/20 05/20/21 Unknown History release prednisone 5 mg tablet 5 mg PO DAILY tab 10/01/20 05/20/21 Unknown History nystatin 100,000 unit/gram topical TOPICAL 01/08/21 05/06/21 Unknown History powder ferrous sulfate 325 mg (65 mg 325 mg PO DAILY 02/01/21 05/20/21 Unknown History iron) tablet Physical Exam Vital Signs: Vital Signs: Last Vital Signs Temp 97 F 05/20/21 17:09 Pulse 92 05/21/21 09:06 Resp 17 05/21/21 09:06 BP 115/65 05/21/21 09:06 Pulse Ox 92 05/21/21 09:06 Oxygen Flow Rate 2 05/20/21 17:09 Body Mass Index 29.0 Const: General: cooperative and no acute distress HENMT: Other: Unremarkable Neck: Neck: Yes normal visual inspection Chest: Chest palpation & inspection: normal inspection of the chest Resp: Auscultation: clear to auscultation bilaterally, no crackles and no wheezes Cardio: Jugular venous distension: no JVD Palpation: normal PMI Heart sounds: S1 normal heart sound present, S2 normal heart sound present, no gallops, Murmur heart sound present (3/6 JEREMY aortic area) and no rubs GI: Palpation (GI): Soft to palpation Back/Spine/Pelvis: Other: unremarkable Skin: General skin exam: no rashes or lesions noted Neuro: Cranial nerves: Yes Other cranial nerve findings present Extrem: General: Yes no clubbing, cyanosis or edema Psych: Mental Status: other Results Labs and Meds Result diagrams: 05/21/21 06:30 05/21/21 06:30 Lab results: Laboratory Results - last 24 hr 05/20/21 05/20/21 05/20/21 21:25 21:25 21:25 WBC 7.3 RBC 4.18 L Hgb 11.4 L Hct 35.2 L MCV 84.2 MCH 27.3 MCHC 32.4 RDW 15.2 Plt Count 298 MPV 8.9 L Immature Gran % (Auto) 0.5 H Neut % (Auto) 68.8 Lymph % (Auto) 18.1 L [place] % (Auto) 9.6 Eos % (Auto) 2.3 Baso % (Auto) 0.7 Lymph # (Auto) 1.3 [place] # (Auto) 0.7 Eos # (Auto) 0.2 Baso # (Auto) 0.1 Abs Immat Gran (auto) 0.04 H Absolute Neuts (auto) 5.0 Absolute Nucleated RBC 0.000 Nucleated RBC % (auto) 0.0 Smear Tech's Comments Sodium 136 Potassium 4.2 D Chloride 100 Carbon Dioxide 24 Anion Gap 16 BUN 23 H Creatinine 1.03 Estim Creat Clear Calc 37.8 Estimated GFR 51 Random Glucose Fasting Glucose 138 H Calcium 8.8 Total Bilirubin 0.5 AST 42 H ALT 44 H Alkaline Phosphatase 87 B-Natriuretic Peptide Total Protein 7.6 Albumin 4.1 COVID-19 (JOSE) Negative COVID-19 Clin Com See Note 05/20/21 05/21/21 05/21/21 21:25 06:30 06:30 WBC 5.4 RBC 4.29 Hgb 11.4 L Hct 35.7 L MCV 83.2 MCH 26.6 L MCHC 31.9 RDW 15.1 Plt Count 312 MPV 9.2 L Immature Gran % (Auto) 0.4 Neut % (Auto) 91.1 H Lymph % (Auto) 7.2 L [place] % (Auto) 1.1 L Eos % (Auto) 0.0 Baso % (Auto) 0.2 Lymph # (Auto) 0.4 L [place] # (Auto) 0.1 Eos # (Auto) 0.0 Baso # (Auto) 0.0 Abs Immat Gran (auto) 0.02 Absolute Neuts (auto) 4.9 Absolute Nucleated RBC 0.000 Nucleated RBC % (auto) 0.0 Smear Tech's Comments VERIFIED Sodium 137 Potassium 3.9 Chloride 99 Carbon Dioxide 29 Anion Gap 13 BUN 20 H Creatinine 0.92 Estim Creat Clear Calc 42.3 Estimated GFR 58 Random Glucose 170 H Fasting Glucose Calcium 8.7 Total Bilirubin AST ALT Alkaline Phosphatase B-Natriuretic Peptide 1032 H Total Protein Albumin COVID-19 (JOSE) COVID-19 Clin Com ECG Interpretation: EKG with sinus rhythm, 81/min, voltage criteria for LVH but no acute ischemic findings. Imaging Radiologist's impression: Impressions Chest X-Ray 05/20/21 22:56 IMPRESSION: Chronic changes in the lungs with no acute pulmonary finding. Assessment and Plan (1) Acute and chronic respiratory failure with hypoxia: Status: Acute (2) Acute diastolic (congestive) heart failure: Status: Acute (3) S/P TAVR (transcatheter aortic valve replacement): Status: Acute Prior echocardiogram from [facility] in January shows LVEF of 60-65%, mild diastolic dysfunction and normally functioning transcatheter aortic valve with mean gradient of 22 mm Hg. Moderate pulmonary hypertension with PA systolic pressure of 58 mm Hg. Cardiac catheterization from 2017 showed nonobstructive CAD without any hemodynamically significant findings. Chest x-ray with chronic changes in the lungs but no acute findings. Creatinine is 0.92. Cardiac BNP elevated at 10 32. HS troponin not available. Overall, suspect symptoms are more pulmonary in nature but cannot exclude diastolic heart failure. Empiric diuretics are reasonable at this time, considering the elevated cardiac BNP. No need to repeat any studies based on the above. Procedures Date of Service Date of Service: 05/21/21
--- NOTE | 2021-05-21 11:14 | MHC.CM.PN ---
pt lives at [facility] in [place]. she uses a wc c any activity out of her room. she said she spends much of her time in her room . she is also on continuous o2 nc from [facility]. evidently, there are two nurses at her AL and class b truck driver's as well that help her c her needs . pt does not want to go to [facility] tx, but [facility]. she also denies the need for vna at tx. pt has a daughter that lives 5 min. from her AL and visits almost daily. her daughter will transport patient back [facility] at tx and she has a portable o2 tank for patient with her. pt also has 5 other children some of who live in the area and visit her at her AL. lastly, patient has had 3 [email or web address] 19 vaccines, the last one being approx 1 1/2 month ago. dc plan is to return to [facility] no svcs. cm to cont. to follow.
--- NOTE | 2021-05-21 13:31 | P.PNIM_ITS ---
Subjective Subjective Date of Service: 05/21/21 Interval History: F/u for heart failure, copd causing sob, feels a little better Review of Systems sob, no cough, no fever Physical Exam Vital Signs: Vital Signs: Last Vital Signs Temp 98.1 F 05/21/21 13:25 Pulse 90 05/21/21 13:25 Resp 24 H 05/21/21 13:25 BP 102/54 L 05/21/21 13:25 Pulse Ox 94 05/21/21 13:25 Oxygen Flow Rate 2 05/20/21 17:09 Body Mass Index 29.0 Const: Other: General: AO X 3, no acute distress Resp: CTA bilateral CVS: S1,S2,RRR, trace leg edema GI: +BS, NT, no distention Skin: No rash Neuro: motor grossly intact Psych: appropriate affect Objective Data Active Medications Acetaminophen (Acetaminophen 325 Mg Tablet) 650 mg PO Q6H PRN PRN Reason: Pain, Mild (Pain Scale 1-3) Last Admin: 05/21/21 09:10 Dose: 650 mg Documented by: MESFIN Albuterol Sulfate (Albuterol Sulfate 90 Mcg 8 Gm Inhaler) 2 puff INHALE Q4H PRN PRN Reason: shortness of breath or wheezing Albuterol/Ipratropium (Albuterol/Iprat 2.5/0.5mg 3 Ml Ampul.Neb) 3 ml INHALE RQ4H WHILE AWAKE [facility] Last Admin: 05/21/21 11:48 Dose: 3 ml Documented by: DEVORA Amlodipine Besylate (Amlodipine Besylate 5 Mg Tablet) 5 mg PO DAILY [facility]; Protocol Last Admin: 05/21/21 09:09 Dose: 5 mg Documented by: MESFIN Atorvastatin Calcium (Atorvastatin Calcium 20 Mg Tablet) 20 mg PO BEDTIME [facility] Azithromycin (Azithromycin 500 Mg Tablet) 500 mg PO Q24H [facility] Furosemide (Furosemide 20 Mg/2 Ml Vial) 20 mg IVPUSH DAILY [facility]; Protocol Last Admin: 05/21/21 09:10 Dose: 20 mg Documented by: MESFIN Gabapentin (Gabapentin 300 Mg Capsule) 300 mg PO BEDTIME [facility] Heparin Sodium (Porcine) (Heparin Sodium,Porcine 5,000 Unit/Ml Vial) 5,000 unit SUBCUT Q8H [facility] Last Admin: 05/21/21 07:51 Dose: 5,000 unit Documented by: MESFIN Lorazepam (Lorazepam 0.5 Mg Tablet) 0.5 mg PO BID [facility] Last Admin: 05/21/21 09:10 Dose: 0.5 mg Documented by: MESFIN Melatonin (Melatonin 3 Mg Tablet) 6 mg PO BEDTIME PRN PRN Reason: Insomnia Methylprednisolone Sodium Succinate (Methylprednisolone Sod Succ 40 Mg/Ml Vial) 40 mg IVPUSH Q6H [facility] Last Admin: 05/21/21 07:51 Dose: 40 mg Documented by: MESFIN Omeprazole (Omeprazole 20 Mg Capsule.Dr) 20 mg PO DAILY@0630 [facility] Last Admin: 05/21/21 07:51 Dose: 20 mg Documented by: MESFIN Pentoxifylline (Pentoxifylline Er 400 Mg Tablet.Er) 400 mg PO BID [facility] Last Admin: 05/21/21 09:09 Dose: 400 mg Documented by: MESFIN Senna (Sennosides 8.6 Mg Tablet) 17.2 mg PO BEDTIME PRN PRN Reason: Constipation Sodium Chloride (0.9 % Sodium Chloride Flush 3 Ml Syringe) 3 ml IVFLUSH QSHIFT [facility] Last Admin: 05/21/21 08:20 Dose: Not Given Documented by: MESFIN Non-Admin Reason: Med Not Available Labs CBC & Chem 7: 05/21/21 06:30 05/21/21 06:30 Labs: Laboratory Results - last 24 hr 05/20/21 05/20/21 05/20/21 21:25 21:25 21:25 MCV 84.2 MCH 27.3 MCHC 32.4 RDW 15.2 Plt Count 298 MPV 8.9 L Immature Gran % (Auto) 0.5 H Neut % (Auto) 68.8 Lymph % (Auto) 18.1 L Wise % (Auto) 9.6 Eos % (Auto) 2.3 Baso % (Auto) 0.7 Lymph # (Auto) 1.3 Wise # (Auto) 0.7 Eos # (Auto) 0.2 Baso # (Auto) 0.1 Abs Immat Gran (auto) 0.04 H Absolute Neuts (auto) 5.0 Absolute Nucleated RBC 0.000 Nucleated RBC % (auto) 0.0 Smear Tech's Comments Anion Gap 16 Estim Creat Clear Calc 37.8 Estimated GFR 51 Random Glucose Fasting Glucose 138 H Calcium 8.8 Total Bilirubin 0.5 AST 42 H ALT 44 H Alkaline Phosphatase 87 B-Natriuretic Peptide Total Protein 7.6 Albumin 4.1 COVID-19 (JOSE) Negative COVID-19 Clin Com See Note 05/20/21 05/21/21 05/21/21 21:25 06:30 06:30 MCV 83.2 MCH 26.6 L MCHC 31.9 RDW 15.1 Plt Count 312 MPV 9.2 L Immature Gran % (Auto) 0.4 Neut % (Auto) 91.1 H Lymph % (Auto) 7.2 L Wise % (Auto) 1.1 L Eos % (Auto) 0.0 Baso % (Auto) 0.2 Lymph # (Auto) 0.4 L Wise # (Auto) 0.1 Eos # (Auto) 0.0 Baso # (Auto) 0.0 Abs Immat Gran (auto) 0.02 Absolute Neuts (auto) 4.9 Absolute Nucleated RBC 0.000 Nucleated RBC % (auto) 0.0 Smear Tech's Comments VERIFIED Anion Gap 13 Estim Creat Clear Calc 42.3 Estimated GFR 58 Random Glucose 170 H Fasting Glucose Calcium 8.7 Total Bilirubin AST ALT Alkaline Phosphatase B-Natriuretic Peptide 1032 H Total Protein Albumin COVID-19 (JOSE) COVID-19 Clin Com Assessment and Plan (1) Acute diastolic (congestive) heart failure: Status: Acute (2) S/P TAVR (transcatheter aortic valve replacement): Status: Acute Assessment and Plan: 85-year-old female with a past medical history of hypertension, hyperlipidemia, COPD, interstitial lung disease, chronic respiratory failure on 2-4 L of home oxygen, CHF, history of MRSA pneumonia, history of TAVR presented to the hospital with a chief complaint of shortness of breath. Acute hypoxic respiratory failure: likely from COPD and heart failure, treat these underlying issues as below Acute diastolic CHF, last echo LVEF of 60-65%, mild diastolic dysfunction -IV lasix, monitor I/O -check cardiac enzymes -cardiology input noted. COPD with possible exacerbation -IV solumedrol, bronchodilators by Neb Hypertension--continue Norvasc hyperlipidemia: continue Statin DVT prophylaxis:? Subcu heparin Code status:? Full code Quality Stroke Does the patient have a stroke diagnosis?: No VTE Prior VTE?: No VTE Risk Level:: Medical - moderate - high VTE Device Contraindication: Treatment Not Indicated VTE Drug Contraindication: N/A - Med Ordered
[2021-05-21 14:10] LABS: Troponin-I High Sensitivity 14.4 ng/L (<3.5-17.0)
[2021-05-21] MEDS: Gabapentin 300 MG CAPSULE PO (21:00)
[2021-05-21] MEDS: Atorvastatin Calcium 20 MG TABLET PO (21:00)
[2021-05-22] VITALS (12 sets, daily range): BP systolic 103–124; BP diastolic 59–73; PULSE 72–99; RESP 16–18; TEMP 36.3–37; O2SAT 90–95; BMI 23.8
[2021-05-22] MEDS: 0.9 % Sodium Chloride Flush 3 ML SYRINGE IVFLUSH ×3 (01:25→15:08)
[2021-05-22] MEDS: methylPREDNISolone Sod Succ 40 MG/ML VIAL IVPUSH ×4 (02:04→21:47)
[2021-05-22] MEDS: Omeprazole 20 MG CAPSULE.DR PO (04:53)
[2021-05-22] MEDS: amLODIPine Besylate 5 MG TABLET PO (07:40)
[2021-05-22] MEDS: Pentoxifylline ER 400 MG TABLET.ER PO ×2 (07:40→21:47)
[2021-05-22] MEDS: LORazepam 0.5 MG TABLET PO ×2 (07:40→21:47)
[2021-05-22] MEDS: Heparin Sodium,Porcine 5,000 UNIT/ML VIAL 5000 UNIT SUBCUT ×2 (07:41→15:07)
[2021-05-22] MEDS: Furosemide 20 MG/2 ML VIAL IVPUSH (07:54)
[2021-05-22] MEDS: Albuterol/Iprat 2.5/0.5MG 3 ML AMPUL.NEB INHALE ×4 (08:25→19:47)
--- NOTE | 2021-05-22 12:56 | MHC.CM.PN ---
EMR REVIEWED, PT REMAINS ON IV LASIX, IV SOLU-MEDROL AND NEBULIZER TS, PER HOSPITALIST PT IMPROVING AND ANTIC D/C TOMORROW 05/23/21.
--- NOTE | 2021-05-22 19:07 | HO.PM.IMPN ---
Subjective Subjective Date of Service: 05/22/21 Interval History: F/u for heart failure, copd causing sob, feels better than yesterday Review of Systems no fever no sob Physical Exam Vital Signs: Vital Signs: Last Vital Signs Temp 98 F 05/22/21 16:00 Pulse 99 05/22/21 16:00 Resp 16 05/22/21 16:00 BP 112/68 05/22/21 16:00 Pulse Ox 94 05/22/21 16:00 Oxygen Flow Rate 2 05/20/21 17:09 Body Mass Index 23.8 Const: Other: General: AO X 3, no acute distress Resp: CTA bilateral CVS: S1,S2,RRR, trace leg edema GI: +BS, NT, no distention Skin: No rash Neuro: motor grossly intact Psych: appropriate affect Objective Data Active Medications Acetaminophen (Acetaminophen 325 Mg Tablet) 650 mg PO Q6H PRN PRN Reason: Pain, Mild (Pain Scale 1-3) Last Admin: 05/21/21 15:56 Dose: 650 mg Documented by: MESFIN Albuterol Sulfate (Albuterol Sulfate 90 Mcg 8 Gm Inhaler) 2 puff INHALE Q4H PRN PRN Reason: shortness of breath or wheezing Albuterol/Ipratropium (Albuterol/Iprat 2.5/0.5mg 3 Ml Ampul.Neb) 3 ml INHALE RQ4H WHILE AWAKE [facility] Last Admin: 05/22/21 15:33 Dose: 3 ml Documented by: JANESSA Amlodipine Besylate (Amlodipine Besylate 5 Mg Tablet) 5 mg PO DAILY [facility]; Protocol Last Admin: 05/22/21 07:40 Dose: 5 mg Documented by: MERCY Atorvastatin Calcium (Atorvastatin Calcium 20 Mg Tablet) 20 mg PO BEDTIME [facility] Last Admin: 05/21/21 21:00 Dose: 20 mg Documented by: PADDY Azithromycin (Azithromycin 500 Mg Tablet) 500 mg PO Q24H [facility] Last Admin: 05/21/21 19:47 Dose: 500 mg Documented by: PADDY Furosemide (Furosemide 20 Mg/2 Ml Vial) 20 mg IVPUSH DAILY [facility]; Protocol Last Admin: 05/22/21 07:54 Dose: 20 mg Documented by: MERCY Gabapentin (Gabapentin 300 Mg Capsule) 300 mg PO BEDTIME [facility] Last Admin: 05/21/21 21:00 Dose: 300 mg Documented by: MCTTan Heparin Sodium (Porcine) (Heparin Sodium,Porcine 5,000 Unit/Ml Vial) 5,000 unit SUBCUT Q8H [facility] Last Admin: 05/22/21 15:07 Dose: 5,000 unit Documented by: MERCY Lorazepam (Lorazepam 0.5 Mg Tablet) 0.5 mg PO BID [facility] Last Admin: 05/22/21 07:40 Dose: 0.5 mg Documented by: MERCY Melatonin (Melatonin 3 Mg Tablet) 6 mg PO BEDTIME PRN PRN Reason: Insomnia Methylprednisolone Sodium Succinate (Methylprednisolone Sod Succ 40 Mg/Ml Vial) 40 mg IVPUSH Q6H [facility] Last Admin: 05/22/21 15:08 Dose: 40 mg Documented by: MERCY Omeprazole (Omeprazole 20 Mg Capsule.Dr) 20 mg PO DAILY@0630 [facility] Last Admin: 05/22/21 04:53 Dose: 20 mg Documented by: CASTILLuz Pentoxifylline (Pentoxifylline Er 400 Mg Tablet.Er) 400 mg PO BID [facility] Last Admin: 05/22/21 07:40 Dose: 400 mg Documented by: MERCY Senna (Sennosides 8.6 Mg Tablet) 17.2 mg PO BEDTIME PRN PRN Reason: Constipation Sodium Chloride (0.9 % Sodium Chloride Flush 3 Ml Syringe) 3 ml IVFLUSH QSHIFT [facility] Last Admin: 05/22/21 15:08 Dose: 3 ml Documented by: MERCY Labs CBC & Chem 7: 05/21/21 06:30 05/21/21 06:30 Assessment and Plan (1) Acute and chronic respiratory failure with hypoxia: Status: Acute Assessment and Plan: 85-year-old female with a past medical history of hypertension, hyperlipidemia, COPD, interstitial lung disease, chronic respiratory failure on 2-4 L of home oxygen, CHF, history of MRSA pneumonia, history of TAVR presented to the hospital with a chief complaint of shortness of breath. Acute hypoxic respiratory failure: likely from COPD and heart failure, treat these underlying issues as below Acute diastolic CHF, last echo LVEF of 60-65%, mild diastolic dysfunction -IV lasix for one more day, monitor I/O -cardiology input noted. COPD with possible exacerbation -IV solumedrol, change to prednisone tomorrow, bronchodilators by Neb Hypertension--continue Norvasc hyperlipidemia: continue Statin DVT prophylaxis:? Subcu heparin Code status:? Full code Quality Stroke Does the patient have a stroke diagnosis?: No VTE Prior VTE?: No VTE Risk Level:: Medical - moderate - high VTE Device Contraindication: Treatment Not Indicated VTE Drug Contraindication: N/A - Med Ordered
[2021-05-22] MEDS: Atorvastatin Calcium 20 MG TABLET PO (21:47)
[2021-05-22] MEDS: Gabapentin 300 MG CAPSULE PO (21:47)
[2021-05-22] MEDS: Azithromycin 500 MG TABLET PO (21:47)
[2021-05-23] VITALS (11 sets, daily range): BP systolic 101–136; BP diastolic 61–80; PULSE 83–95; RESP 16–20; TEMP 36.2–36.8; O2SAT 92–98
[2021-05-23] MEDS: Heparin Sodium,Porcine 5,000 UNIT/ML VIAL 5000 UNIT SUBCUT ×4 (00:21→21:55)
[2021-05-23] MEDS: 0.9 % Sodium Chloride Flush 3 ML SYRINGE IVFLUSH ×3 (00:22→21:56)
[2021-05-23] MEDS: methylPREDNISolone Sod Succ 40 MG/ML VIAL IVPUSH ×4 (02:31→21:56)
[2021-05-23] MEDS: Omeprazole 20 MG CAPSULE.DR PO (06:01)
[2021-05-23] MEDS: amLODIPine Besylate 5 MG TABLET PO (08:17)
[2021-05-23] MEDS: LORazepam 0.5 MG TABLET PO ×2 (08:18→21:56)
[2021-05-23] MEDS: Furosemide 40 MG TABLET PO (08:18)
[2021-05-23] MEDS: Pentoxifylline ER 400 MG TABLET.ER PO ×2 (08:18→21:56)
[2021-05-23] MEDS: Albuterol/Iprat 2.5/0.5MG 3 ML AMPUL.NEB INHALE ×3 (11:41→20:10)
--- NOTE | 2021-05-23 13:02 | PM.DS ---
DS: Providers Provider Date of Service: 05/24/21 Date of admission: 05/20/21 23:26 Primary care physician: Timoteo Grullon MD Consults: 05/20/21 23:26 Consult to Cardiology Routine Consulting Provider: Oli Tejada Reason for consultation: CHF Consult to Pulmonology Routine Consulting Provider: Timoteo Grullon Reason for consultation: ILD; hypoxia DS: Diagnosis Discharge Diagnosis (1) Acute and chronic respiratory failure with hypoxia: Status: Resolved DS: Summary Hospital Course Hospital Course: Admission HPI Chief Complaint: SOB 85-year-old female with a past medical history of hypertension, hyperlipidemia, COPD, interstitial lung disease, chronic respiratory failure on 2-4 L of home oxygen, CHF, history of MRSA pneumonia, history of TAVR presented to the hospital with a chief complaint of shortness of breath. Reported that over the past few days she has been having shortness of breath and increased dyspnea on exertion; she uses 2 L of oxygen at rest and 4 L at ambulation; today noted toe hypoxic to 70% even on 4 L of home oxygen; denies any chest pain palpitations. Denies any fever chills. Denies any cough or sputum production; Denies any GI or symptoms. Review of all other systems is negative except mentioned above ER course:? Patient noted to be hypoxic; on supplemental oxygen; not in respiratory distress; chest x-ray showed no evidence of pneumonia; concern for COPD exacerbation-given Solu-Medrol; also noted to elevated proBNP-given Lasix.? Admitted for further management. Hospital course: Acute hypoxic respiratory failure: likely from COPD, heart failure and underlying interstitial lung disease. She is back to her baseline with treatment of these underlying issues. She is on chronic O2 at baseline and presently saturating 98% on 3 liters, brething easy and feels very comfortable. Acute diastolic CHF, last echo? LVEF of 60-65%, mild diastolic dysfunction, etiology of exacerbation was not clear but there was no evidence of acute ischemia, she improved quickly with IV Lasix and has been transitioned back to oral Lasix at 40 mg daily and to watch fluid and salt intake. COPD with probably mild exacerbation, treated with steroid, bronchodilators by Neb. To return to baseline O2, Prednisone 5 mg daily, Hypertension--continue Norvasc hyperlipidemia: continue Statin Time Spent with Patient Time attestation: Total time spent providing and/or coordinating discharge services: Discharge coordination time: Greater than 30 minutes Quality: Stroke Does the patient have a stroke diagnosis?: No Physical Exam Vital Signs: Vital Signs: Selected Entries 05/24/21 09:48 Pulse Rate 73 Blood Pressure 110/58 L Pulse Oximetry 92 Const: Other: General: AO X 3, no acute distress Resp: CTA bilateral CVS: S1,S2,RRR GI: +BS, NT, no distention Skin: No rash Neuro: motor grossly intact Psych: appropriate affect Discharge Plan Discharge Anticipated Discharge Date/Time: 05/24/21 12:39 Patient Disposition: Home Health Service Discharge Diagnosis: CHF, COPD, respiratory failure Referrals: Timoteo Grullon MD [Primary Care Provider] - 1 Week Discharge Medications: Continued albuterol sulfate [ProAir HFA] 90 mcg/actuation HFA aerosol inhaler 2 puff inhalation Q4-6H PRN (Reason: shortness of breath or wheezing) Qty: 8.5 RF: 2 lorazepam 0.5 mg tablet 0.5 mg PO BID Qty: 60 RF: 5 simvastatin 40 mg tablet 40 mg PO BEDTIME Qty: 90 RF: 8 furosemide [Lasix] 40 mg tablet 40 mg PO DAILY Qty: 90 RF: 8 ferrous sulfate 325 mg (65 mg iron) tablet 325 mg PO DAILY RF: 0 amlodipine 5 mg tablet 5 mg PO DAILY RF: 0 pentoxifylline 400 mg tablet extended release 400 mg PO BID RF: 0 ipratropium bromide 42 mcg (0.06 %) spray,non-aerosol intranasal RF: 0 gabapentin 300 mg capsule 300 mg PO BEDTIME RF: 0 prednisone 5 mg tablet 5 mg PO DAILY RF: 0 nystatin 100,000 unit/gram powder topical RF: 0 omeprazole 20 mg capsule,delayed release(DR/EC) 20 mg PO DAILY RF: 0 Discharge Orders: Discharge Order (Routine); Ordered 05/23/21 Ordered By: Ganesh Lazar Diet: advance to usual diet and low salt diet Activity on Discharge: As tolerated Stand Alone Forms: Patient Portal Discharge page Care Plan Goals: prevent rehospitaliaztion for heart failure Health Concerns: chronic heart failure Plan of Treatment: continue all prior medications, avoid drinking no more than 1200 cc of water a day and avoid salty foods Assessment: as above Discharge Date/Time: 05/24/21 16:45
--- NOTE | 2021-05-23 13:41 | P.F2F_ITS ---
Service Date Service Date: 05/23/21 Reasons for Services Reason for snf: CV/CP assess and/or care and medication treatment Homebound: Leaving the home is medically contraindicated at this time without the asist of a device and/or another person due th the listed conditions above and below. Homebound supporting statement: homebound due to heart failure with respiratory failure limiting activities and therefore needs the assistance of another person Certification: Based on the above findings, I certify that this patient is confi nito to the home and needs intermittent snf care, physical therapy and/or speech therapy, or continues to need occupational therapy. The patient is under my care, and I have initiated the establishment of the plan of care. The patient will be followed by a physician who will periodically review the plan of care.
--- NOTE | 2021-05-23 14:14 | MHC.CM.PN ---
Addendum entered by Kandy Millan, RN 05/23/21 15:01: CM MET W/PT'S DTR AND PT AT BEDSIDE, PT'S DTR HAS CONCERNS REGARDING PT'S ABILITY TO GO HOME AND BE BY HERSELF, DTR ASKING FOR STR/ACUTE REHAB, PT PREFERS [facility] HOWEVER WILL GO TO SNF FOR STR IF NOT ACCEPTED AT ACUTE REHAB. REFERRALS PLACED AND CM WILL DELIVER LIST OF SNF'S FOR PT/DTR TO REVIEW. DTR REQUESTING TO SPEAK W/HOSPITALIST, HOSPITALIST NOTIFED VIA [facility]. Original Note: PER HOSPITALIST PT MEDICALLY CLEARED TO D/C TODAY HOME W/[facility] FOR SN[facility]PT, PT'S DTR FOR TRANSPORT. PT WOULD LIKE [facility] SHE RECENTLY HAD THEM FOR SERVICES, REFERRAL WAS SENT VIA [facility] AND FOLLOW-UP CALL AT 2:10PM [phone], PER [facility] THEY WILL LOOK INTO REFERALL AND GET BACK TO CM.
--- NOTE | 2021-05-23 17:31 | HO.PM.IMPN ---
Subjective Subjective Date of Service: 05/23/21 Interval History: F/u for heart failure, copd causing sob, no sob but weak Review of Systems no fever no sob weak Physical Exam Vital Signs: Vital Signs: Last Vital Signs Temp 97.4 F 05/23/21 16:00 Pulse 90 05/23/21 16:00 Resp 18 05/23/21 16:00 BP 134/61 05/23/21 16:00 Pulse Ox 93 05/23/21 16:00 Oxygen Flow Rate 2 05/20/21 17:09 Body Mass Index 23.8 Const: Other: General: AO X 3, no acute distress Resp: CTA bilateral CVS: S1,S2,RRR, trace leg edema GI: +BS, NT, no distention Skin: No rash Neuro: motor grossly intact Psych: appropriate affect Objective Data Active Medications Acetaminophen (Acetaminophen 325 Mg Tablet) 650 mg PO Q6H PRN PRN Reason: Pain, Mild (Pain Scale 1-3) Last Admin: 05/21/21 15:56 Dose: 650 mg Documented by: MESFIN Albuterol Sulfate (Albuterol Sulfate 90 Mcg 8 Gm Inhaler) 2 puff INHALE Q4H PRN PRN Reason: shortness of breath or wheezing Albuterol/Ipratropium (Albuterol/Iprat 2.5/0.5mg 3 Ml Ampul.Neb) 3 ml INHALE RQ4H WHILE AWAKE [facility] Last Admin: 05/23/21 14:55 Dose: 3 ml Documented by: BHUPINDER Amlodipine Besylate (Amlodipine Besylate 5 Mg Tablet) 5 mg PO DAILY [facility]; Protocol Last Admin: 05/23/21 08:17 Dose: 5 mg Documented by: COLLINS Atorvastatin Calcium (Atorvastatin Calcium 20 Mg Tablet) 20 mg PO BEDTIME [facility] Last Admin: 05/22/21 21:47 Dose: 20 mg Documented by: SAY Azithromycin (Azithromycin 500 Mg Tablet) 500 mg PO Q24H [facility] Last Admin: 05/22/21 21:47 Dose: 500 mg Documented by: SAY Furosemide (Furosemide 40 Mg Tablet) 40 mg PO DAILY [facility]; Protocol Last Admin: 05/23/21 08:18 Dose: 40 mg Documented by: COLLINS Gabapentin (Gabapentin 300 Mg Capsule) 300 mg PO BEDTIME [facility] Last Admin: 05/22/21 21:47 Dose: 300 mg Documented by: SAY Heparin Sodium (Porcine) (Heparin Sodium,Porcine 5,000 Unit/Ml Vial) 5,000 unit SUBCUT Q8H [facility] Last Admin: 05/23/21 08:20 Dose: 5,000 unit Documented by: COLLINS Lorazepam (Lorazepam 0.5 Mg Tablet) 0.5 mg PO BID [facility] Last Admin: 05/23/21 08:18 Dose: 0.5 mg Documented by: COLLINS Melatonin (Melatonin 3 Mg Tablet) 6 mg PO BEDTIME PRN PRN Reason: Insomnia Methylprednisolone Sodium Succinate (Methylprednisolone Sod Succ 40 Mg/Ml Vial) 40 mg IVPUSH Q6H [facility] Last Admin: 05/23/21 14:05 Dose: 40 mg Documented by: COLLINS Omeprazole (Omeprazole 20 Mg Capsule.Dr) 20 mg PO DAILY@0630 [facility] Last Admin: 05/23/21 06:01 Dose: 20 mg Documented by: ANTHONY Pentoxifylline (Pentoxifylline Er 400 Mg Tablet.Er) 400 mg PO BID [facility] Last Admin: 05/23/21 08:18 Dose: 400 mg Documented by: COLLINS Senna (Sennosides 8.6 Mg Tablet) 17.2 mg PO BEDTIME PRN PRN Reason: Constipation Sodium Chloride (0.9 % Sodium Chloride Flush 3 Ml Syringe) 3 ml IVFLUSH QSHIFT [facility] Last Admin: 05/23/21 08:18 Dose: 3 ml Documented by: COLLINS Labs CBC & Chem 7: 05/21/21 06:30 05/21/21 06:30 Assessment and Plan (1) CHF (congestive heart failure): Status: Acute Assessment and Plan: 85-year-old female with a past medical history of hypertension, hyperlipidemia, COPD, interstitial lung disease, chronic respiratory failure on 2-4 L of home oxygen, CHF, history of MRSA pneumonia, history of TAVR presented to the hospital with a chief complaint of shortness of breath. Acute hypoxic respiratory failure: likely from COPD and heart failure, treat these underlying issues as below Acute diastolic CHF, last echo LVEF of 60-65%, mild diastolic dysfunction -IV lasix to PO Lasix -cardiology input noted. COPD with possible exacerbation -IV solumedrol to P, change to prednisone, bronchodilators by Neb Hypertension--continue Norvasc hyperlipidemia: continue Statin DVT prophylaxis:? Subcu heparin Code status:? Full code PT to reassess for STR, feels weak and will not do well at independent living. Quality Stroke Does the patient have a stroke diagnosis?: No VTE Prior VTE?: No VTE Risk Level:: Medical - moderate - high VTE Device Contraindication: Treatment Not Indicated VTE Drug Contraindication: N/A - Med Ordered
[2021-05-23] MEDS: Gabapentin 300 MG CAPSULE PO (21:56)
[2021-05-23] MEDS: Atorvastatin Calcium 20 MG TABLET PO (21:56)
[2021-05-23] MEDS: Azithromycin 500 MG TABLET PO (21:56)
[2021-05-23] MEDS: Melatonin 3 MG TABLET 6 MG PO (22:01)
[2021-05-24] MEDS: methylPREDNISolone Sod Succ 40 MG/ML VIAL IVPUSH ×2 (03:05→08:38)
[2021-05-24 03:24] VITALS: BP 123/62; PULSE 77; RESP 19; O2SAT 93
[2021-05-24] MEDS: Omeprazole 20 MG CAPSULE.DR PO (05:20)
[2021-05-24 07:56] VITALS: BP 110/58; PULSE 73; RESP 20; TEMP 36.4; O2SAT 92
[2021-05-24] MEDS: Pentoxifylline ER 400 MG TABLET.ER PO (08:02)
[2021-05-24] MEDS: amLODIPine Besylate 5 MG TABLET PO (08:02)
[2021-05-24] MEDS: LORazepam 0.5 MG TABLET PO (08:02)
[2021-05-24] MEDS: Furosemide 40 MG TABLET PO (08:02)
[2021-05-24] MEDS: 0.9 % Sodium Chloride Flush 3 ML SYRINGE IVFLUSH (08:03)
--- NOTE | 2021-05-24 08:12 | HO.PM.IMPN ---
Subjective Subjective Date of Service: 05/24/21 Interval History: F/u on heart failure, copd, doing well. No sob but weak Review of Systems no fever no sob weak Physical Exam Vital Signs: Vital Signs: Last Vital Signs Temp 97.5 F 05/24/21 07:56 Pulse 73 05/24/21 07:56 Resp 20 05/24/21 07:56 BP 110/58 L 05/24/21 07:56 Pulse Ox 92 05/24/21 07:56 Oxygen Flow Rate 2 05/20/21 17:09 Body Mass Index 23.8 Const: Other: General: AO X 3, no acute distress Resp: CTA bilateral CVS: S1,S2,RRR, trace leg edema GI: +BS, NT, no distention Skin: No rash Neuro: motor grossly intact Psych: appropriate affect Objective Data Active Medications Acetaminophen (Acetaminophen 325 Mg Tablet) 650 mg PO Q6H PRN PRN Reason: Pain, Mild (Pain Scale 1-3) Last Admin: 05/21/21 15:56 Dose: 650 mg Documented by: MESFIN Albuterol Sulfate (Albuterol Sulfate 90 Mcg 8 Gm Inhaler) 2 puff INHALE Q4H PRN PRN Reason: shortness of breath or wheezing Albuterol/Ipratropium (Albuterol/Iprat 2.5/0.5mg 3 Ml Ampul.Neb) 3 ml INHALE RQ4H WHILE AWAKE [facility] Last Admin: 05/24/21 07:50 Dose: Not Given Documented by: MEGA Non-Admin Reason: Patient Asleep Amlodipine Besylate (Amlodipine Besylate 5 Mg Tablet) 5 mg PO DAILY [facility]; Protocol Last Admin: 05/24/21 08:02 Dose: 5 mg Documented by: LEON Atorvastatin Calcium (Atorvastatin Calcium 20 Mg Tablet) 20 mg PO BEDTIME [facility] Last Admin: 05/23/21 21:56 Dose: 20 mg Documented by: BETTE Azithromycin (Azithromycin 500 Mg Tablet) 500 mg PO Q24H [facility] Last Admin: 05/23/21 21:56 Dose: 500 mg Documented by: BETTE Furosemide (Furosemide 40 Mg Tablet) 40 mg PO DAILY [facility]; Protocol Last Admin: 05/24/21 08:02 Dose: 40 mg Documented by: LEON Gabapentin (Gabapentin 300 Mg Capsule) 300 mg PO BEDTIME [facility] Last Admin: 05/23/21 21:56 Dose: 300 mg Documented by: BETTE Heparin Sodium (Porcine) (Heparin Sodium,Porcine 5,000 Unit/Ml Vial) 5,000 unit SUBCUT Q8H [facility] Last Admin: 05/23/21 21:55 Dose: 5,000 unit Documented by: BETTE Lorazepam (Lorazepam 0.5 Mg Tablet) 0.5 mg PO BID [facility] Last Admin: 05/24/21 08:02 Dose: 0.5 mg Documented by: LEON Melatonin (Melatonin 3 Mg Tablet) 6 mg PO BEDTIME PRN PRN Reason: Insomnia Last Admin: 05/23/21 22:01 Dose: 6 mg Documented by: BETTE Methylprednisolone Sodium Succinate (Methylprednisolone Sod Succ 40 Mg/Ml Vial) 40 mg IVPUSH Q6H [facility] Last Admin: 05/24/21 03:05 Dose: 40 mg Documented by: BETTE Omeprazole (Omeprazole 20 Mg Capsule.Dr) 20 mg PO DAILY@0630 [facility] Last Admin: 05/24/21 05:20 Dose: 20 mg Documented by: BETTE Pentoxifylline (Pentoxifylline Er 400 Mg Tablet.Er) 400 mg PO BID [facility] Last Admin: 05/24/21 08:02 Dose: 400 mg Documented by: LEON Senna (Sennosides 8.6 Mg Tablet) 17.2 mg PO BEDTIME PRN PRN Reason: Constipation Sodium Chloride (0.9 % Sodium Chloride Flush 3 Ml Syringe) 3 ml IVFLUSH QSHIFT [facility] Last Admin: 05/24/21 08:03 Dose: 3 ml Documented by: LEON Labs CBC & Chem 7: 05/21/21 06:30 05/21/21 06:30 Assessment and Plan (1) CHF (congestive heart failure): Status: Acute Assessment and Plan: 85-year-old female with a past medical history of hypertension, hyperlipidemia, COPD, interstitial lung disease, chronic respiratory failure on 2-4 L of home oxygen, CHF, history of MRSA pneumonia, history of TAVR presented to the hospital with a chief complaint of shortness of breath. Acute hypoxic respiratory failure: likely from COPD and heart failure, treat these underlying issues as below Acute diastolic CHF, last echo LVEF of 60-65%, mild diastolic dysfunction -continue PO Lasix -cardiology input noted. COPD with possible exacerbation -continue bronchodilators, and Prednisone 5 daily (home dose) Hypertension--continue Norvasc hyperlipidemia: continue Statin DVT prophylaxis:? Subcu heparin Code status:? Full code PT to reassess for STR, feels weak and will not do well at independent living. Quality Stroke Does the patient have a stroke diagnosis?: No VTE Prior VTE?: No VTE Risk Level:: Medical - moderate - high VTE Device Contraindication: Treatment Not Indicated VTE Drug Contraindication: N/A - Med Ordered
[2021-05-24] MEDS: Heparin Sodium,Porcine 5,000 UNIT/ML VIAL 5000 UNIT SUBCUT (08:37)
--- NOTE | 2021-05-24 09:32 | MHC.CM.PN ---
Addendum entered by Kandy Millan, RN 05/24/21 11:53: [facility] HAS NO BED AVAILABILITY, [facility] PENDING, [facility] OFFERING A BED, WILL FOLLOW-UP W/FAMILY WHO ARE AT BEDSIDE Original Note: CM RECEIVED MESSAGE FROM PT'S DTR AMBER REGARDING STR PREFERENCES, PER [facility] (1) AND [facility] (2).
[2021-05-24 09:48] VITALS: BP 110/58; PULSE 73; O2SAT 92
[2021-05-24 12:00] VITALS: BP 116/73; PULSE 89; RESP 20; TEMP 36.3; O2SAT 92
--- NOTE | 2021-05-24 13:41 | MHC.CM.PN ---
PT DISCHARGING TO [facility] AT 3:30PM, [facility] FOR BLS TRANSPORT
[2021-05-24 14:28] LABS: COVID-19 Test Negative (Negative)
== END 2021-05-24 16:45 | disposition home health service (06) | DRG 291 ==
LOC: HO.ED 23:35 → HO.EDOVER 23:39 → HO.S3 05-21 23:13
PROVIDERS: Admitting Provider Hospitalist; Emergency Provider Internal Medicine; PCP Internal Medicine; Visit Provider Internal Medicine
DX: I11.0 Hypertensive heart disease with heart failure (principal); J96.21 Acute and chronic respiratory failure with hypoxia; I50.33 Acute on chronic diastolic (congestive) heart failure; J44.1 Chronic obstructive pulmonary disease with (acute) exacerbation; E78.5 Hyperlipidemia, unspecified; Z95.2 Presence of prosthetic heart valve; Z20.822 Contact with and (suspected) exposure to COVID-19; Z88.5 Allergy status to narcotic agent; Z99.81 Dependence on supplemental oxygen; Z79.52 Long term (current) use of systemic steroids; Z79.899 Other long term (current) drug therapy
CPT/HCPCS: 36415; 71045; 80048; 80053; 83880; 84484; 85025; 87635; 93005; 94640; 96374; 96375; 97110; 97162; 99285; J1940; J2920; J2930

== ENCOUNTER 2021-07-31 14:32 | Outpatient (REF) | payer MEDICARE, OTHER, SELFPAY ==
[2021-07-31 16:41] LABS: Basophils Percent Auto 0.2 % (0-2); Eosinophils Percent Auto 0.1 % (0-4); Hematocrit 42.3 % (37.0-47.0); Hemoglobin 13.6 g/dl (12.0-16.0); Imm Gran Abs Auto 0.14 X10*3/uL (0.00-0.03); Lymphocytes Absolute Auto 0.7 X10*3/uL (1.2-4.9); Lymphocytes Percent Auto 4.9 % (20-40); MANUAL DIFF FLAG SCAN; Mean Corpuscular HGB Conc 32.2 g/dl (31.0-35.0); Mean Corpuscular Hemoglobin 26.9 pg (27.0-33.0); Mean Corpuscular Volume 83.8 fL (80.0-98.0); Mean Platelet Volume 10.1 fL (9.4-12.3); Monocytes Absolute Auto 0.3 X10*3/uL (0.1-1.2); Monocytes Percent Auto 2.2 % (2-11); Neutrophils Absolute Auto 13.5 x10*3/uL (2.0-8.3); Neutrophils Percent Auto 91.6 % (45-73); Platelet Count 268 X10*3/uL (160-400); Red Blood Count 5.05 X10*6/uL (4.20-5.50); Red Cell Distribution Width 18.8 % (11.0-16.0); SCAN SMEAR FLAG 1; White Blood Count 14.7 X10*3/uL (4.8-10.8)
[2021-07-31 16:59] LABS: SLIDE REVIEW VERIFIED
[2021-07-31 17:36] LABS: Anion Gap 17 (12-20); Blood Urea Nitrogen 34 mg/dL (9-16); Calcium 8.8 mg/dL (8.4-10.2); Carbon Dioxide 26 mmol/L (22-29); Chloride 97 mmol/L (96-108); Estimated Glomerular Filt Rate 31; Glucose Random 378 mg/dL (60-115); Potassium 4.9 mmol/L (3.3-5.1); Sodium 135 mmol/L (135-145)
[2021-07-31 17:43] LABS: Thyroid Stimulating Hormone 1.14 uIU/mL (0.32-4.0)
== END 2021-07-31 14:33 | disposition home or self-care (01) ==
LOC: HO.LAB 14:32
PROVIDERS: Absent Provider Internal Medicine; PCP Internal Medicine; Visit Provider Internal Medicine
DX: Z00.00 Encounter for general adult medical examination without abnormal findings (principal); Z13.0 Encounter for screening for diseases of the blood and blood-forming organs and certain disorders involving the immune mechanism; R51.9 Headache, unspecified; J84.9 Interstitial pulmonary disease, unspecified; I50.9 Heart failure, unspecified; Z95.2 Presence of prosthetic heart valve
CPT/HCPCS: 36415; 80048; 84443; 85025; 99212

== ENCOUNTER → 2021-09-04 11:16 | Outpatient (BNVA) | payer MEDICARE, OTHER, SELFPAY | PROVIDERS: PCP Internal Medicine; Visit Provider Internal Medicine | DX: J84.9 Interstitial pulmonary disease, unspecified (principal); J96.91 Respiratory failure, unspecified with hypoxia; Z95.2 Presence of prosthetic heart valve | CPT/HCPCS: 99212 ==